=== PATIENT | male | born 1940 | race Caucasian/White ===

== ENCOUNTER 2017-11-22 10:13 | Outpatient (CLI) | payer MEDICARE, BC | END 2017-11-22 10:14 | disposition home or self-care (01) | LOC: BICRAD 10:13 | PROVIDERS: ATTEND Internal Medicine | DX: M25.562 Pain in left knee (principal); M17.12 Unilateral primary osteoarthritis, left knee; R93.7 Abnormal findings on diagnostic imaging of other parts of musculoskeletal system ==